=== PATIENT | female | born 1980 ===

== ENCOUNTER 2017-08-25 23:54 | Emergency (ER) | payer OTHER ==
[2017-08-25 23:55] VITALS: BMI 29.0
[2017-08-26 00:06] VITALS: BP 144/87; PULSE 79; RESP 17; O2SAT 99
[2017-08-26 00:07] VITALS: TEMP 98.3
[2017-08-26] MEDS ORDERED: TDAP Vaccine 0.5 mL Syr IM ONE (00:26)
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
== END 2017-08-26 01:13 | disposition home or self-care (01) ==
LOC: ED 23:54
DX: S60.511A Abrasion of right hand, initial encounter (principal); Y08.89XA Assault by other specified means, initial encounter; Y92.238 Other place in hospital as the place of occurrence of the external cause; Y99.0 Civilian activity done for income or pay; Z23 Encounter for immunization